=== PATIENT | female | born 1960 | race Caucasian/White ===

== ENCOUNTER 2019-09-02 09:59 | Outpatient (CLI) | payer OTHER, SELFPAY ==
[2019-09-02 10:47] LABS: Magnesium 1.8 mg/dL (1.8-2.4)
[2019-09-04 10:52] LABS: Vitamin D 25 Hydroxy 66 ng/mL (30-100)
== END 2019-09-02 10:00 | disposition home or self-care (01) ==
LOC: CHSLAB 10:02
PROVIDERS: PCP Nurse Practitioner Family; Visit Provider Nurse Practitioner Family
DX: R79.89 Other specified abnormal findings of blood chemistry (principal); E55.9 Vitamin D deficiency, unspecified
CPT/HCPCS: 36415; 82306; 83735

== ENCOUNTER 2020-01-13 08:54 | Outpatient (RCR) | payer OTHER, SELFPAY ==
--- NOTE | 2020-01-13 10:05 | PTOPEVAL ---
Thank you for referring Kaylene Hope to [facility] [place][Note 2]. Please review, sign, date and return this plan of care YUDITH. I agree with and certify that the following plan of care is medically necessary. Referring Physician Date Admitting Provider: Attending Provider: Reyes Phelps, Referring Provider: *PT Outpatient Evaluation Start: 01/13/20 09:08 Freq: Status: Active Protocol: Document 01/13/20 09:08 YUE (Rec: 01/13/20 10:04 YUE [id number]) Therapy Assessment Status Assessment Status Assessment Status Evaluation Outpatient Past Medical History Neurological History Hx Neurological Disorders No Significant History Cardiovascular History Hx Cardiac Disorders No Significant History Respiratory History Hx Respiratory Disorders No Significant History Gastrointestinal History Hx Gastrointestinal Disorders No Significant History Genitourinary History Hx Genitourinary Disorders No Significant History Musculoskeletal History Hx Musculoskeletal Disorders No Significant History Hematological History Hx Blood Transfusions Yes Endocrine History Hx Endocrine Disorders No Significant History HEENT History Hx HEENT Disorders No Significant History Integumentary History Hx Skin Disorders No Significant History Reproductive History Hx Post Menopausal Yes Psychosocial History Hx Psychiatric Disorders No Significant History Pain History Has Past Pain Affected Your Daily Life Yes Anesthesia History Hx Anesthesia Reactions No Significant History Evaluation Information Problem Diagnosis left proximal tibia fx Onset 06/29/19 Subjective Information Pt. reports that she was Query Text:As Reported By Patient/ preparing for a family get Family together in June. She reports that she was walking down an step stool and missed a step and sharebroker her left leg . She reports that she underwent surgery to repair the fx on 07/05/19. She reports having had compartment syndrome initially. She states that her pain is not intense currently. She states that since injuring the leg she has not been able to walk normal. She reports that her complications stem from her being NWB untill mid august and then limited with her WB
== END 2020-02-14 09:32 | disposition home or self-care (01) ==
LOC: CHSPT 08:54
PROVIDERS: PCP Nurse Practitioner Family; Visit Provider Orthopaedic Surgery Orthopaedic Trauma
DX: S82.102A Unspecified fracture of upper end of left tibia, initial encounter for closed fracture (principal)
CPT/HCPCS: 97110; 97161; 97530

== ENCOUNTER 2020-01-19 08:08 | Emergency (ER) | payer OTHER, SELFPAY ==
[2020-01-19 08:15] VITALS: BP 114/86; PULSE 108; RESP 18; TEMP 36.7; O2SAT 96
--- NOTE | 2020-01-19 08:54 | ED.WOUNDLAC ---
HPI - Wound/Laceration General Chief Complaint: Wound/Laceration Stated Complaint: allergic reation to a bee or wasp sting Source: patient Mode of arrival: ambulatory Limitations: no limitations History of Present Illness HPI narrative: [place] a sharp sting in the right medial ankle 2 days ago. Yesterday AM a small blister was forming at the sting site and foot was swollen. Since then the blistering has progressed to involve the medial and lateral ankle. The medial was opened up yesterday. It drains honey colored fluid. She has no pain, red streaking, fever or chills. There is some itching. Last week she had a sting on the lateral side resulting in foot become pink and swollen but not vesicular. She recalls receiving prednisone in the past (amount/duration unknown) followed by visual halllucinations. Related Data Home Medications Medication Instructions Recorded Confirmed Spiriva Respimat 2 puff INHALATION DAILY 06/29/19 01/19/20 Allergies Allergy/AdvReac Type Severity Reaction Status Date / Time prednisone Allergy Intermediate Agitation Verified 01/21/20 07:54 Review of Systems Constitutional: Constitutional: Denies chills and Denies fever(s) Respiratory: Comments: Gastrointestinal: Gastrointestinal: Denies nausea and Denies vomiting Integumentary/Breasts: Skin/Breast: Reports system reviewed and no additional complaints, except as docu [facility] Past Medical History Medical History COPD (chronic obstructive pulmonary disease) DEON (generalized anxiety disorder) Hypothyroid Nicotine dependence Surgical History Surgical History H/O hernia repair Hx of colonoscopy 05/28/2018 Social History Social History Smoking status: Current every day smoker Tobacco type: cigarettes Alcohol intake: current Drinks per week: 14 Substance use: never Gender identity (if verbalized by the patient): Female Spiritual care concerns: No Agree to blood products: Yes Exam Const: General: no acute distress Extrem: Ankle/foot/toe images: 1. tender ulceration with honey colored d.c. no surrounding redness or tenderness 2. patch of nontender vesicles 3. patch of nontender vesicles Other: right medial and lateral edema of ankle and foot Course Vital Signs Vital signs: Vital Signs Temperature 36.7 C 07/19/20 08:15 Pulse Rate 108 H 01/19/20 08:15 Respiratory Rate 18 01/19/20 08:15 Blood Pressure 114/86 01/19/20 08:15 Pulse Oximetry 96 01/19/20 08:15 Temperature 36.6 C 01/19/20 09:11 Pulse Rate 95 01/19/20 09:11 Respiratory Rate 20 01/19/20 09:11 Blood Pressure 128/70 01/19/20 09:11 Pulse Oximetry 99 01/19/20 09:11 MDM - Wound/Laceration MDM Narrative Medical decision making narrative: Rapid development of swelling and blistering in less than a day is c/w a Large Local Reaction from a hymenoptera sting. Infection would occur at 3 days, and would be associated with pain, redness and tenderness. Pt. informed of this. C & S sent. Discharge Plan Discharge Clinical Impression: Hymenoptera reaction Patient Disposition: Home, Self-Care Condition: Stable Instructions: Antibiotic Form, Cellulitis (ED), Insect Bite or Sting (ED) Additional Instructions: Cetirizine over the counter as needed for itching. Keep wound clean and dry. See Millie in 2 days if not improved, or in 5 days if blisters haven't healed. Apply cool compress to sooth it. Avoid situations where you may come in contact with wasps and bees. Wear shoes and socks when possible. Prescriptions: No Action Spiriva Respimat 2.5 mcg/actuation mist 2 puff INHALATION DAILY RF: 0 albuterol sulfate 90 mcg/actuation HFA aerosol inhaler 1 puff INHALATION QID PRN (Reason: shortness of breath) Qty: 6.7 RF: 0 cholecalciferol
[2020-01-19] MEDS: NEOMYCIN/POLYMYXIN/BACITRACIN OINTMENT PACKET 2 PACKET (09:04)
[2020-01-19] MEDS: TETANUS,DIPHTHERIA,AC PERTUSSIS ADULT 0.5 ML (ADACEL) IM (09:08)
[2020-01-19 09:11] VITALS: BP 128/70; PULSE 95; RESP 20; TEMP 36.6; O2SAT 99
== END 2020-01-19 09:20 | disposition home or self-care (01) ==
PROVIDERS: Emergency Provider Family Medicine; PCP Nurse Practitioner Family
DX: S90.521A Blister (nonthermal), right ankle, initial encounter (principal); W57.XXXA Bitten or stung by nonvenomous insect and other nonvenomous arthropods, initial encounter
CPT/HCPCS: 87070; 87077; 87186; 87205; 90471; 90715; 99281; 99282

== ENCOUNTER 2020-03-23 10:51 | Outpatient (CLI) | payer OTHER, SELFPAY ==
[2020-03-23 11:07] LABS: Basophils Absolute Auto 0.07 K/mm3 (0.00-0.10); Basophils Percent Auto 0.7 % (0.0-1.0); Hematocrit 43.5 % (35.0-49.0); Hemoglobin 14.6 g/dL (12.0-15.0); Immature Granulocyte Absolute 0.05 K/mm3 (0.00-0.00); Immature Granulocyte Percent A 0.5 % (0.0-0.0); Lymphocytes Absolute Auto 2.07 K/mm3 (1.10-4.50); Lymphocytes Percent Auto 21.9 % (18.0-42.0); Mean Corpuscular HGB Conc 33.6 g/dL (32.0-36.0); Mean Corpuscular Hemoglobin 32.7 pg (27.0-31.0); Mean Corpuscular Volume 97.3 fL (78.0-102.0); Mean Platelet Volume 9.6 fl (9.2-11.8); Monocytes Absolute Auto 0.52 K/mm3 (0.10-0.90); Monocytes Percent Auto 5.5 % (2.0-11.0); Neutrophils Absolute Auto 6.7 K/mm3 (1.7-7.2); Neutrophils Percent Auto 71.4 % (50.0-70.0); Platelet Count Result 281 K/mm3 (150-420); Red Blood Count 4.47 M/mm3 (4.20-5.40); Red Cell Distribution Width 13.6 % (11.6-14.4); White Blood Count 9.5 K/mm3 (4.8-10.8)
[2020-03-23 11:49] LABS: Alanine Aminotransferase 19 U/L (14-59); Albumin Level 4.7 g/dL (3.4-5.0); Alkaline Phosphatase 115 U/L (46-116); Anion Gap 11 mmol/L (8-16); Aspartate Amino Transferase 15 U/L (15-37); Bilirubin,Total 0.3 mg/dL (0.00-1.00); Blood Urea Nitrogen 13 mg/dL (7-18); Calcium 9.2 mg/dL (8.5-10.1); Carbon Dioxide 28 mmol/L (21-32); Chloride 101 mmol/L (98-108); Estimated Glomerular Filt Rate > 60; Free T4 Free Thyroxine 1.23 ng/dL (0.76-1.46); Glucose 120 mg/dL (70-99); Magnesium 2.2 mg/dL (1.8-2.4); Osmolality Calculated 291 mOsm/kg (285-295); Potassium 4.6 mmol/L (3.5-5.1); Sodium 140 mmol/L (136-145); Thyroid Stimulating Hormone 0.78 uIU/mL (0.36-3.74); Total Protein 7.5 g/dL (6.4-8.2)
[2020-03-23 15:08] LABS: Hemoglobin A1C 5.2 % (<5.7)
[2020-03-26 22:04] LABS: Vitamin D 25 Hydroxy 49 ng/mL (30-100)
== END 2020-03-23 10:52 | disposition home or self-care (01) ==
LOC: CHSLAB 10:55
PROVIDERS: PCP Nurse Practitioner Family; Visit Provider Nurse Practitioner Family
DX: Z79.899 Other long term (current) drug therapy (principal); E03.9 Hypothyroidism, unspecified; R42 Dizziness and giddiness; R73.09 Other abnormal glucose
CPT/HCPCS: 36415; 80053; 82306; 83036; 83735; 84439; 84443; 85025

== ENCOUNTER 2020-06-09 09:34 | Outpatient (CLI) | payer OTHER, SELFPAY ==
--- NOTE | ~2020-06-09 | XR_ITS ---
XR chest 2V DATE: 06/09/2020 10:12 INDICATION: Preoperative evaluation for leg surgery/john removal TECHNIQUE: PA and lateral views COMPARISON: 07/20/2019 CT pulmonary scan 07/20/2019 portable AP chest FINDINGS: Normal heart size. There is minimal atelectasis or scarring at one or both lung bases. The lungs are otherwise clear of infiltrate or consolidation. Mild bilateral apical capping. No hilar or mediastinal enlargement. No pleural effusion or pulmonary vascular congestion or pneumothorax. Diffuse osteopenia. Mild dextro scoliosis of the thoracic spine. IMPRESSION: Mild discoid atelectasis or scarring at one or both lung bases; otherwise no active cardi opulmonary disease Reviewed, dictated and finalized at location A. ESPONDENT IMPRESSION: Mild discoid atelectasis or scarring at one or both lung bases; oth erwise no active cardiopulmonary disease
--- NOTE | 2020-06-09 09:37 | ECG_ITS ---
Measurements Intervals [place] Rate: 64 P: 80 OR: 189 QRS: -12 QRSD: 96 T: 42 QT: 414 QTc: 430 Interpretive Statements SINUS RHYTHM INCOMPLETE RIGHT BUNDLE BRANCH BLOCK BASELINE ARTIFACT- iii, avf BORDERLINE ECG Electronically Signed On 06-09-2020 9:55:59 POST OFFICE CLERK by Stephan Bowser D.O.
[2020-06-09 09:55] LABS: Add Urine Microscopic? YES; Appearance Urine Clear (Clear); Basophils Absolute Auto 0.06 K/mm3 (0.00-0.10); Basophils Percent Auto 0.9 % (0.0-1.0); Bilirubin Urine Negative (Negative); Blood Urine Negative (Negative); Color Urine Yellow (Yellow); Eosinophils Absolute Auto 0.06 K/mm3 (0.02-0.50); Eosinophils Percent Auto 0.9 % (1.0-6.0); Glucose Urine UA Negative (Negative); Hematocrit 40.6 % (35.0-49.0); Hemoglobin 13.2 g/dL (12.0-15.0); Immature Granulocyte Absolute 0.02 K/mm3 (0.00-0.00); Immature Granulocyte Percent A 0.3 % (0.0-0.0); Ketones Urine Negative (Negative); Leukocyte Esterase Ur Trace LEU/UL (Negative); Lymphocytes Absolute Auto 2.39 K/mm3 (1.10-4.50); Mean Corpuscular HGB Conc 32.5 g/dL (32.0-36.0); Mean Corpuscular Hemoglobin 32.4 pg (27.0-31.0); Mean Corpuscular Volume 99.5 fL (78.0-102.0); Mean Platelet Volume 9.7 fl (9.2-11.8); Monocytes Absolute Auto 0.62 K/mm3 (0.10-0.90); Monocytes Percent Auto 9.1 % (2.0-11.0); Neutrophils Absolute Auto 3.7 K/mm3 (1.7-7.2); Neutrophils Percent Auto 53.8 % (50.0-70.0); Nitrate Urine Negative (Negative); Platelet Count Result 233 K/mm3 (150-420); Protein Urine Negative (Negative); Red Blood Count 4.08 M/mm3 (4.20-5.40); Red Cell Distribution Width 13.2 % (11.6-14.4); Urobilinogen Urine 0.2 mg/dL (0.2-1.0); White Blood Count 6.8 K/mm3 (4.8-10.8)
[2020-06-09 10:02] LABS: RBC Urine 0-2 /hpf (0-2); WBC Urine 0-3 /hpf (0-3)
[2020-06-09 10:03] LABS: Amorphous Sediment Urine Moderate; Bacteria Urine Trace /hpf; Squamous Epithelial Cell Urine Rare /hpf (Few)
[2020-06-09 10:08] LABS: Prothrombin Time 10.7 Seconds (9.50-12.10)
[2020-06-09 10:41] LABS: Alanine Aminotransferase 18 U/L (14-59); Albumin Level 4.5 g/dL (3.4-5.0); Alkaline Phosphatase 90 U/L (46-116); Anion Gap 8 mmol/L (8-16); Aspartate Amino Transferase 13 U/L (15-37); Bilirubin,Total 0.5 mg/dL (0.00-1.00); Blood Urea Nitrogen 17 mg/dL (7-18); Calcium 9.6 mg/dL (8.5-10.1); Carbon Dioxide 30 mmol/L (21-32); Chloride 102 mmol/L (98-108); Estimated Glomerular Filt Rate > 60; Glucose 101 mg/dL (70-99); Osmolality Calculated 291 mOsm/kg (285-295); Potassium 4.5 mmol/L (3.5-5.1); Sodium 140 mmol/L (136-145)
== END 2020-06-09 09:35 | disposition home or self-care (01) ==
LOC: CHSLAB 09:37
PROVIDERS: PCP Nurse Practitioner Family; Visit Provider Nurse Practitioner Family
DX: Z01.818 Encounter for other preprocedural examination (principal)
CPT/HCPCS: 36415; 71046; 80053; 81001; 85025; 85610; 93005

== ENCOUNTER → 2020-06-30 10:15 | Outpatient (CLI) | payer OTHER, SELFPAY ==
--- NOTE | ~2020-06-30 | MM_ITS ---
EXAMINATION: MM screening [place] BI w rubin HISTORY: Screening TECHNIQUE: Craniocaudal and mediolateral oblique 3-D tomosynthesis images were obtained and synthetic 2-D images were generated. CAD analysis was submitted and interpreted. COMPARISON: Comparison to multiple prior studies sequentially, with oldest reviewed study dated 08/01. BREAST PARENCHYMAL COMPOSITION: There are scattered areas of fibroglandular density. FINDINGS: There is no evidence of suspicious mass, calcification, or architectural distortion to sugg est malignancy in either breast. There has been no suspicious interval change. IMPRESSION: 1. No mammographic evidence of malignancy. 2. Recommend routine screening mammography in one year. BI-RADS Category 1: Negative Reviewed, dictated and finalized at location A. N MACHINE OPERATOR
== END ==
PROVIDERS: Visit Provider Obstetrics & Gynecology
DX: Z12.31 Encounter for screening mammogram for malignant neoplasm of breast (principal)
CPT/HCPCS: 77063; 77067

== ENCOUNTER 2020-06-30 16:49 | Outpatient (CLI) | payer OTHER, SELFPAY | END 2020-06-30 16:50 | disposition home or self-care (01) | LOC: CHSLAB 16:52 | PROVIDERS: PCP Nurse Practitioner Family; Visit Provider Specialist | DX: C44.519 Basal cell carcinoma of skin of other part of trunk (principal) | CPT/HCPCS: 88305 ==

== ENCOUNTER 2020-10-06 10:11 | Outpatient (CLI) | payer OTHER, SELFPAY ==
[2020-10-06 11:18] LABS: Thyroid Stimulating Hormone 1.97 uIU/mL (0.36-3.74)
== END 2020-10-06 10:12 | disposition home or self-care (01) ==
LOC: CHSLAB 10:13
PROVIDERS: PCP Nurse Practitioner Family; Visit Provider Nurse Practitioner Family
DX: E03.9 Hypothyroidism, unspecified (principal)
CPT/HCPCS: 36415; 84443

== ENCOUNTER 2021-01-16 08:20 | Outpatient (CLI) | payer OTHER, SELFPAY ==
[2021-01-16 09:44] LABS: SARS-CoV-2 RNA PCR Negative (Negative)
== END 2021-01-16 08:21 | disposition home or self-care (01) ==
PROVIDERS: PCP Nurse Practitioner Family; Visit Provider Nurse Practitioner Family
DX: Z01.818 Encounter for other preprocedural examination (principal); Z20.822 Contact with and (suspected) exposure to COVID-19
CPT/HCPCS: C9803; U0003; U0005

== ENCOUNTER 2021-08-31 11:46 | Outpatient (CLI) | payer OTHER, SELFPAY | END 2021-08-31 11:47 | disposition home or self-care (01) | LOC: CHSOUTPT 11:47 | PROVIDERS: PCP Nurse Practitioner Family; Visit Provider Specialist | DX: C44.319 Basal cell carcinoma of skin of other parts of face (principal) | CPT/HCPCS: 88305 ==

== ENCOUNTER 2021-11-05 09:00 | Outpatient (CLI) | payer OTHER, SELFPAY ==
[2021-11-05 09:11] LABS: Hematocrit 44.2 % (35.0-49.0); Hemoglobin 14.4 g/dL (12.0-15.0); Mean Corpuscular HGB Conc 32.6 g/dL (32.0-36.0); Mean Corpuscular Volume 101.1 fL (78.0-102.0); Mean Platelet Volume 9.9 fl (9.2-11.8); Platelet Count Result 224 K/mm3 (150-420); Red Blood Count 4.37 M/mm3 (4.20-5.40); Red Cell Distribution Width 13.7 % (11.6-14.4); White Blood Count 6.3 K/mm3 (4.8-10.8)
[2021-11-05 10:15] LABS: Alanine Aminotransferase 48 U/L (14-59); Albumin Level 3.8 g/dL (3.4-5.0); Alkaline Phosphatase 104 U/L (46-116); Anion Gap 4 mmol/L (8-16); Aspartate Amino Transferase 30 U/L (15-37); Bilirubin,Total 0.3 mg/dL (0.00-1.00); Blood Urea Nitrogen 12 mg/dL (7-18); Calcium 9.3 mg/dL (8.5-10.1); Carbon Dioxide 30 mmol/L (21-32); Chloride 99 mmol/L (98-108); Cholesterol 174 mg/dL (0-200); Estimated Glomerular Filt Rate > 60; Folic Acid 10.7 ng/mL (8.6->20); Glucose 110 mg/dL (70-99); HDL Direct 75 mg/dL (40-60); LDL Cholesterol Calculated 83 mg/dL (<130); Osmolality Calculated 276 mOsm/kg (285-295); Potassium 4.7 mmol/L (3.5-5.1); Sodium 133 mmol/L (136-145); Triglycerides 82 mg/dL (0-150); Vitamin B12 497 pg/mL (193-986)
[2021-11-05 10:18] LABS: Thyroid Stimulating Hormone Reflex 2.06 u/IU/mL (0.36-3.74)
[2021-11-08 15:40] LABS: Hemoglobin A1C 4.9 % (<5.7)
[2021-11-09 15:00] LABS: Vitamin D 1,25 (OH)2 Total 45 pg/mL (18-72); Vitamin D2 1,25 (OH)2 <8 pg/mL; Vitamin D3 1,25 (OH)2 45 pg/mL
== END 2021-11-05 09:01 | disposition home or self-care (01) ==
LOC: CHSLAB 09:02
PROVIDERS: PCP Nurse Practitioner Family; Visit Provider Family Medicine
DX: E53.8 Deficiency of other specified B group vitamins (principal); R53.1 Weakness; E11.9 Type 2 diabetes mellitus without complications; E03.9 Hypothyroidism, unspecified; E55.9 Vitamin D deficiency, unspecified
CPT/HCPCS: 36415; 80053; 80061; 82607; 82652; 82746; 83036; 84443; 85027

== ENCOUNTER 2022-04-28 10:48 | Outpatient (RCR) | payer OTHER, SELFPAY ==
--- NOTE | 2022-04-28 12:58 | PTOPEVAL1 ---
Assessment and note entered by Pooja Espino, PT Evaluation Information Assessment Status Evaluation Diagnosis Complex Regional Pain Syndrom L LE Onset 06/29/19 Subjective Information Kaylene Hope reports she broke her left tibia and fibula on 06/29/19 and she had to have surgery to have the fractures stabilized. She was non-weight bearing for 3 months and she was supposed to see her surgeon in September 2019 but it was cancelled due to COVID. She continued to be non-weight bearing and she finally saw the surgeon in November 2019 and was able to start putting 25% weight on her left leg. She states pain in the left knee and sensitivity in the lower leg has never gone away since then. Sensitivity has gotten worse so, she went back to her surgeon. She was diagnosed with complex regional pain syndrome and arthritis in her knee; she is almost bone on bone. She will likely need a total knee replacement in the next 2 years. She had an injection on 04/25/22 to improve the cushion in her knee. She is having left knee pain with stepping up, walking, and standing for long periods. She notes sensitivity to even light rubbing on her leg. Reported Pain Level Pain Score 7: Self Report Assessment PT Clinical Summary Kaylene Hope presents with a diagnosis of left complex regional pain syndrome of the lower leg. She had a fracture to the left tibia and fibula requiring surgical stabilization in June 2019. She was non-weight bearing for 3 months and then only partial weight bearing for 2 more months. She reports left knee pain and lower leg sensitivity has not gone away since then. She was also recently diagnosed with knee arthritis. She objectively demonstrates hypersensitivity in the left lower leg from the ankle to the knee. Hypersensitivity is worse distally and laterally. She also demonstrates decreased left knee and ankle AROM, lower leg and ankle edema, decreased left LE strength, impaired gait, impaired balance, and decreased functional abilities including lower tolerance to driving a bus, walking, stair negotiation, and standing. Balance tests indicate she is a moderate fall risk. She will benefit from skilled PT to address these limitations. Plan of Care Interventions Gait Training,Hot Pack/Cold Pack,Manual Therapy, Neuro Re-education,Patient/Caregiver Educati, Th
--- NOTE | 2022-05-10 12:05 | PTOPPROG ---
Assessment and note entered by Pooja Espino, PT Evaluation Information Assessment Status Progress Diagnosis Complex Regional Pain Syndrome L LE Onset 06/29/22 Subjective Information Kaylene reports her pain and hypersensitivity in the left lower leg has not changed much since initiating PT. She does note a small improvement in her mobility though. She will see her referring physician on 05/11/22 for a follow up appointment. Assessment PT Clinical Summary Kaylene has completed 5 skilled PT visits for left knee/leg pain and complex regional pain syndrome. She is reporting no overall change in her pain or sensitvity since initiating PT. She does note a small improvement in her mobility. She objectively demonstrates ongoing hypersensitivity on the left lower leg that is worse laterally and becomes less sensitive medially. She continues to have deficits in left knee and ankle ROM, impaired gait , and left lower leg edema. She may continue to benefit from skilled PT to further address ongoing physical and functional limitations. Plan of Care Interventions Manual Therapy,Neuro Re-education,Patient/ Caregiver Educati,Therapeutic Activities, Therapeutic Exercise PT Services Indicated Yes Treatment Frequency and Continue 3 times a week for 7 more visits per Duration original plan of care. These treatments will address the objective and functional deficits as defined above. The patient will be advanced safely and appropriately in order for the patient to progress towards his/her prior level of function. Additional exercises will be introduced and as well as a comprehensive home exercise program upon discharge, if needed, ?to ensure carryover of functional gains achieved in the clinic. This treatment plan has been reviewed and agreement upon by the patient.
--- NOTE | 2022-07-25 17:36 | PCPTNOTE ---
Mrs. Hope attended 9 treatment sessions from 04/28/22 to 05/20/22. She has failed to return to the clinic at this time and will be discharged from our care.
== END 2022-05-20 14:11 | disposition home or self-care (01) ==
LOC: CHSPT 10:48
DX: G90.522 Complex regional pain syndrome I of left lower limb (principal)
CPT/HCPCS: 97110; 97140; 97161

== ENCOUNTER 2023-01-27 08:51 | Outpatient (CLI) | payer OTHER, SELFPAY ==
[2023-01-27 09:08] LABS: Basophils Absolute Auto 0.05 K/mm3 (0.00-0.10); Basophils Percent Auto 0.8 % (0.0-1.0); Eosinophils Absolute Auto 0.06 K/mm3 (0.02-0.50); Eosinophils Percent Auto 0.9 % (1.0-6.0); Hematocrit 39.4 % (35.0-49.0); Hemoglobin 13.7 g/dL (12.0-15.0); Immature Granulocyte Absolute 0.03 K/mm3 (0.00-0.00); Immature Granulocyte Percent A 0.5 % (0.0-0.0); Lymphocytes Absolute Auto 2.21 K/mm3 (1.10-4.50); Lymphocytes Percent Auto 33.8 % (18.0-42.0); Mean Corpuscular HGB Conc 34.8 g/dL (32.0-36.0); Mean Corpuscular Hemoglobin 33.4 pg (27.0-31.0); Mean Corpuscular Volume 96.1 fL (78.0-102.0); Mean Platelet Volume 9.9 fl (9.2-11.8); Monocytes Absolute Auto 0.51 K/mm3 (0.10-0.90); Monocytes Percent Auto 7.8 % (2.0-11.0); Neutrophils Absolute Auto 3.7 K/mm3 (1.7-7.2); Neutrophils Percent Auto 56.2 % (50.0-70.0); Platelet Count Result 205 K/mm3 (150-420); Red Cell Distribution Width 13.5 % (11.6-14.4); White Blood Count 6.5 K/mm3 (4.8-10.8)
[2023-01-27 09:50] LABS: Alanine Aminotransferase 21 U/L (14-59); Albumin Level 4.1 g/dL (3.4-5.0); Alkaline Phosphatase 86 U/L (46-116); Anion Gap 10 mmol/L (8-16); Aspartate Amino Transferase 17 U/L (15-37); Bilirubin,Total 0.9 mg/dL (0.00-1.00); Blood Urea Nitrogen 5 mg/dL (7-18); Calcium 8.9 mg/dL (8.5-10.1); Carbon Dioxide 28 mmol/L (21-32); Chloride 99 mmol/L (98-108); Cholesterol 246 mg/dL (0-200); Estimated Glomerular Filt Rate > 60; Glucose 121 mg/dL (70-99); HDL Direct 85 mg/dL (40-60); LDL Cholesterol Calculated 131 mg/dL (<130); Osmolality Calculated 282 mOsm/kg (285-295); Potassium 3.8 mmol/L (3.5-5.1); Sodium 137 mmol/L (136-145); Thyroid Stimulating Hormone 1.25 uIU/mL (0.36-3.74); Triglycerides 150 mg/dL (0-150)
== END 2023-01-27 08:52 | disposition home or self-care (01) ==
LOC: CHSLAB 08:53
PROVIDERS: PCP Nurse Practitioner Family; Visit Provider Nurse Practitioner Family
DX: J44.9 Chronic obstructive pulmonary disease, unspecified (principal); E03.9 Hypothyroidism, unspecified
CPT/HCPCS: 36415; 80053; 80061; 83036; 84443; 85025

== ENCOUNTER 2023-07-13 11:47 | Outpatient (CLI) | payer OTHER, SELFPAY ==
--- NOTE | ~2023-07-13 | MM_ITS ---
EXAMINATION: MM screening [facility] BI w rubin HISTORY: Screening mammogram TECHNIQUE: Craniocaudal and mediolateral oblique 3-D tomosynthesis images were obtained and synthetic 2-D images were generated. CAD analysis was submitted and interpreted. COMPARISON: 06/30/2020, 06/28/2019, 05/17/2018 BREAST PARENCHYMAL COMPOSITION: There are scattered areas of fibroglandular density. FINDINGS: No suspicious mass, calcification, or architectural distortion are identified in either tito ast to suggest malignancy. There has been no suspicious interval change. IMPRESSION: 1. No mammographic evidence of malignancy. 2. Recommend routine screening mammography in one year. BI-RADS Category 1: Negative Reviewed, dictated and finalized at location A. ER 2ND SHIFT
== END 2023-07-13 11:48 | disposition home or self-care (01) ==
LOC: CHSIMG 11:48
PROVIDERS: PCP Nurse Practitioner Family; Visit Provider Nurse Practitioner Family
DX: Z12.31 Encounter for screening mammogram for malignant neoplasm of breast (principal)
CPT/HCPCS: 77063; 77067

== ENCOUNTER 2023-09-19 11:00 | Outpatient (CLI) | payer OTHER, SELFPAY | END 2023-09-19 11:01 | disposition home or self-care (01) | LOC: CHSLAB 11:06 | PROVIDERS: PCP Nurse Practitioner Family; Visit Provider Specialist | DX: C44.311 Basal cell carcinoma of skin of nose (principal) | CPT/HCPCS: 88305 ==

== ENCOUNTER 2023-10-19 08:24 | Outpatient (CLI) | payer OTHER, SELFPAY ==
[2023-10-19 09:08] LABS: Appearance Urine Clear (Clear); Basophils Absolute Auto 0.07 K/mm3 (0.00-0.10); Bilirubin Urine Negative (Negative); Blood Urine Negative (Negative); Color Urine Light Yellow (Yellow); Eosinophils Absolute Auto 0.06 K/mm3 (0.02-0.50); Eosinophils Percent Auto 0.9 % (1.0-6.0); Glucose Urine UA Negative (Negative); Hemoglobin 13.4 g/dL (12.0-15.0); Immature Granulocyte Absolute 0.02 K/mm3 (0.00-0.00); Immature Granulocyte Percent A 0.3 % (0.0-0.0); Ketones Urine Negative (Negative); Leukocyte Esterase Ur Trace (Negative); Lymphocytes Absolute Auto 2.21 K/mm3 (1.10-4.50); Lymphocytes Percent Auto 32.3 % (18.0-42.0); Mean Corpuscular HGB Conc 33.5 g/dL (32-36); Mean Corpuscular Hemoglobin 32.8 pg (27.0-31.0); Mean Corpuscular Volume 97.8 fL (78.0-102.0); Mean Platelet Volume 10.2 fl (9.2-11.8); Monocytes Absolute Auto 0.49 K/mm3 (0.10-0.90); Monocytes Percent Auto 7.2 % (2.0-11.0); Neutrophils Percent Auto 58.3 % (50.0-70.0); Nitrate Urine Negative (Negative); Platelet Count Result 253 K/mm3 (150-420); Protein Urine Negative (Negative); Red Blood Count 4.09 M/mm3 (4.20-5.40); Red Cell Distribution Width 12.7 % (11.6-14.4); Specific Grav Ur 1.025 (1.010-1.020); Urobilinogen Urine 0.2 mg/dL (0.2-1.0); White Blood Count 6.9 K/mm3 (4.8-10.8); pH Urine 5.5 (5.0-8.0)
[2023-10-19 09:09] LABS: HCO3 VBG 25.7 mEq/l (24.0-30.0); PCO2 VBG 41.6 mmHg (42.0-48.0); pH VBG 7.41 (7.33-7.43)
[2023-10-19 09:11] LABS: Device ROOM AIR
[2023-10-19 09:28] LABS: Add Urine Microscopic? YES; RBC Urine None seen /hpf (0-2)
[2023-10-19 09:29] LABS: Bacteria Urine Rare /hpf; Squamous Epithelial Cell Urine Few /hpf (Few); WBC Urine 0-3 /hpf (0-3)
[2023-10-19 09:32] LABS: Prothrombin Time 10.7 Seconds (9.50-12.1)
[2023-10-19 09:48] LABS: Alanine Aminotransferase 22 U/L (14-59); Albumin Level 4.3 g/dL (3.4-5.0); Alkaline Phosphatase 82 U/L (46-116); Anion Gap 7 mmol/L (4-12); Aspartate Amino Transferase 19 U/L (15-37); Bilirubin,Total 0.5 mg/dL (0.00-1.00); Blood Urea Nitrogen 8 mg/dL (7-18); Calcium 9.3 mg/dL (8.5-10.1); Carbon Dioxide 31 mmol/L (21-32); Chloride 99 mmol/L (98-108); Cholesterol 212 mg/dL (0-200); Estimated Glomerular Filt Rate > 60; Glucose 105 mg/dL (70-99); HDL Direct 94 mg/dL (40-60); LDL Cholesterol Calculated 102 mg/dL (<130); Osmolality Calculated 282 mOsm/kg (285-295); Potassium 4.4 mmol/L (3.5-5.1); Sodium 137 mmol/L (136-145); Total Protein 6.8 g/dL (6.4-8.2); Triglycerides 79 mg/dL (0-150)
== END 2023-10-19 08:25 | disposition home or self-care (01) ==
LOC: CHSLAB 08:26
PROVIDERS: PCP Nurse Practitioner Family; Visit Provider Nurse Practitioner Family
DX: Z00.00 Encounter for general adult medical examination without abnormal findings (principal); E03.9 Hypothyroidism, unspecified; F17.200 Nicotine dependence, unspecified, uncomplicated; R41.0 Disorientation, unspecified
CPT/HCPCS: 36415; 80053; 80061; 81001; 82803; 83036; 84443; 85025; 85610; 87086; 87088

== ENCOUNTER 2023-10-20 09:57 | Outpatient (CLI) | payer OTHER, SELFPAY ==
--- NOTE | ~2023-10-20 | CT_ITS ---
Non-contrast Head CT History: Disorientation Technique: Axial non-contrast imaging of the brain was performed. Dose reduction technique was used on this scan by utilizing automated exposure control and iterative reconstruction technique. The dose -length product (DLP) was 605.33 mGy-cm. Findings: There is no evidence of intracranial hemorrhage, mass lesion, or acute infarct. Brain par enchyma appears normal. The ventricles and subarachnoid spaces are normal in size. The calvarium ap pears normal. The visualized paranasal sinuses and mastoid air cells are clear. Impression: No significant abnormality seen. Reviewed, dictated and finalized at location . Impression: No significant abnormality seen.
== END 2023-10-20 09:58 | disposition home or self-care (01) ==
LOC: CHSIMG 09:58
PROVIDERS: PCP Nurse Practitioner Family; Visit Provider Nurse Practitioner Family
DX: H21.561 Pupillary abnormality, right eye (principal); R41.0 Disorientation, unspecified
CPT/HCPCS: 70450

== ENCOUNTER 2024-04-30 09:53 | Outpatient (CLI) | payer OTHER, SELFPAY | END 2024-04-30 09:54 | disposition home or self-care (01) | LOC: CHSLAB 09:57 | PROVIDERS: PCP Family Medicine; Visit Provider Specialist | DX: C44.311 Basal cell carcinoma of skin of nose (principal) | CPT/HCPCS: 88305 ==

== ENCOUNTER 2024-05-14 11:11 | Outpatient (CLI) | payer OTHER, SELFPAY ==
[2024-05-14 11:24] LABS: Basophils Absolute Auto 0.08 K/mm3 (0.00-0.10); Basophils Percent Auto 0.9 % (0.0-1.0); Eosinophils Absolute Auto 0.04 K/mm3 (0.02-0.50); Eosinophils Percent Auto 0.5 % (1.0-6.0); Hematocrit 40.9 % (35.0-49.0); Immature Granulocyte Absolute 0.02 K/mm3 (0.00-0.00); Immature Granulocyte Percent A 0.2 % (0.0-0.0); Lymphocytes Percent Auto 27.2 % (18.0-42.0); Mean Corpuscular HGB Conc 34.2 g/dL (32-36); Mean Corpuscular Hemoglobin 33.3 pg (27.0-31.0); Mean Corpuscular Volume 97.1 fL (78.0-102.0); Mean Platelet Volume 9.7 fl (9.2-11.8); Monocytes Absolute Auto 0.73 K/mm3 (0.10-0.90); Monocytes Percent Auto 8.3 % (2.0-11.0); Neutrophils Absolute Auto 5.55 K/mm3 (1.70-7.20); Neutrophils Percent Auto 62.9 % (50.0-70.0); Platelet Count Result 270 K/mm3 (150-420); Red Blood Count 4.21 M/mm3 (4.20-5.40); Red Cell Distribution Width 12.5 % (11.6-14.4); White Blood Count 8.8 K/mm3 (4.8-10.8)
[2024-05-14 11:37] LABS: D Dimer 0.19 mg/L (0.19-0.50); Prothrombin Time 10.9 Seconds (9.50-12.1)
[2024-05-14 11:47] LABS: Anion Gap 8 mmol/L (4-12); Blood Urea Nitrogen 9 mg/dL (7-18); Calcium 9.7 mg/dL (8.5-10.1); Carbon Dioxide 32 mmol/L (21-32); Chloride 100 mmol/L (98-108); Estimated Glomerular Filt Rate > 60; Glucose 118 mg/dL (70-99); NT Pro B Type Natriuretic Pept 74 pg/mL (0-125); Osmolality Calculated 289 mOsm/kg (285-295); Potassium 3.7 mmol/L (3.5-5.1); Sodium 140 mmol/L (136-145); Thyroid Stimulating Hormone 2.94 uIU/mL (0.36-3.74); Troponin I 4.5 ng/L (0.00-60.4)
== END 2024-05-14 11:12 | disposition home or self-care (01) ==
LOC: CHSLAB 11:12
PROVIDERS: PCP Nurse Practitioner Family; Visit Provider Nurse Practitioner Family
DX: R07.1 Chest pain on breathing (principal); E03.9 Hypothyroidism, unspecified; R06.02 Shortness of breath
CPT/HCPCS: 36415; 80048; 83880; 84443; 84484; 85025; 85380; 85610

== ENCOUNTER 2025-02-24 08:48 | Outpatient (CLI) | payer MEDICARE, SELFPAY ==
[2025-02-24 09:06] LABS: Hematocrit 40.2 % (35.0-42.0); Hemoglobin 13.2 g/dL (11.7-13.8); Immature Granulocyte Percent A 0.2 % (0.0-0.0); Immature Platelet Fraction Pct 7.2 % (1.0-7.0); Lymphocytes Absolute Auto 2.06 K/mm3 (1.10-4.50); Mean Corpuscular HGB Conc 32.8 g/dL (32-36); Mean Corpuscular Hemoglobin 32.4 pg (27.0-31.0); Mean Corpuscular Volume 98.5 fL (78.0-102.0); Nucleated Red Blood Cells Absolute Auto 0.00 K/mm3 (0.00-0.00); Nucleated Red Blood Cells Perc 0.0 % (0-0.0); Platelet Count Result 241 K/mm3 (150-420); Red Blood Count 4.08 M/mm3 (4.20-5.40); White Blood Count 5.0 K/mm3 (4.8-10.8)
--- OUTSIDE RECORDS SUMMARY | 2025-02-24 09:11 | XMS_ITS | Clinical Summary ---
Author Organization [facility] Address [address] [place] [address] Care Team Providers Care Transmission Calibration Engineer Name Role Phone Unknown, Notinfile Primary Care Provider Unavail able Allergies No known active allergies Medications albuterol HFA (VENTOLIN HFA) 90 mcg/actuation inhaler Ventolin HFA 90 mcg/actuation aerosol inhaler Active hydrOXYzine (ATARAX) 25 mg tablet TK 1 T PO HS PRN NV 3 9 Active levothyroxine (SYNTHROID) 50 mcg tablet TK 1 T PO D 3 9 Active SPIRIVA RESPIMAT 2.5 mcg/actuation inhaler INL 2 PFS PO D 2 9 Active traZODone (DESYREL) 100 mg tablet TK 1 T PO HS 3 9 Active acetaminophen-c odeine (TYLENOL with CODEINE #3) 300-30 mg per tablet Take 1 tablet by mouth every 4 (four) hours as needed for pain (At bedtime) 7 tablet 0 Active mupirocin (BACTROBAN) 2 % ointment Apply topically 3 (three) times a day 22 g 0 Active Active Problems No known active problems Social History Tobacco Use Types Packs/Day Years Used Date Smoking Tobacco: Every Day Cigarettes Smokeless Tobacco: Never Personal Safety Answer Date Recorded Getting School Help Needed Not on file 09/16 Comments Unknown Sex and Gender Information Value Date Recorded Sex Assigned at Not on file Legal 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 Gender Identity Not on file Sexual Orientation Not on file Obstetrics History Last Filed Vital Signs Vital Sign Reading Time Taken Comments Blood Pressure 98/52 01/24/2020 1:19 PM CDT Pulse 65 01/24/2020 1:19 PM CDT Temperature - - Respiratory Rate - - Oxygen Saturation 100% 01/24/2020 1:19 PM CDT Inhaled Oxygen Concentration - - Weight - - Height - - Body Mass Index - - Plan of Treatment Not on file Insurance [facility] [place] [address] Care Teams Transmission Calibration Engineer Relationship Specialty Start Date End Date Unknown, Notinfile PCP - General 05/20/19
[2025-02-24 09:19] LABS: Hemoglobin A1C 5.4 % (<5.7)
[2025-02-24 09:49] LABS: Alanine Aminotransferase 17 U/L (6-35); Albumin Level 4.8 g/dL (3.5-5.1); Alkaline Phosphatase 55 U/L (38-126); Anion Gap 9 mmol/L (4-12); Aspartate Amino Transferase 33 U/L (14-36); Bilirubin,Total 0.5 mg/dL (0.2-1.3); Blood Urea Nitrogen 8 mg/dL (7-17); Calcium 9.6 mg/dL (8.4-10.2); Carbon Dioxide 29 mmol/L (22-30); Chloride 96 mmol/L (98-107); Cholesterol 174 mg/dL (0-200); Estimated Glomerular Filt Rate > 60; Glucose 85 mg/dL (65-110); HDL Direct 83 mg/dL; Osmolality Calculated 275 mOsm/kg (285-295); Potassium 4.9 mmol/L (3.4-5.0); Sodium 134 mmol/L (137-145); Total Protein 7.1 g/dL (6.3-8.2); Triglycerides 235 mg/dL (<150)
[2025-02-24 09:58] LABS: NT Pro B Type Natriuretic Pept 50 pg/mL (19.9-100)
[2025-02-24 10:20] LABS: Thyroid Stimulating Hormone Reflex 1.800 uIU/mL (0.465-4.68)
== END 2025-02-24 08:49 | disposition home or self-care (01) ==
LOC: CHSLAB 08:49
PROVIDERS: PCP Nurse Practitioner Family; Visit Provider Nurse Practitioner Family
DX: E03.9 Hypothyroidism, unspecified (principal); Z13.1 Encounter for screening for diabetes mellitus; R06.01 Orthopnea; J44.9 Chronic obstructive pulmonary disease, unspecified
CPT/HCPCS: 36415; 80053; 80061; 83036; 83880; 84443; 85025; 85055

== ENCOUNTER 2025-03-18 13:45 | Outpatient (CLI) | payer MEDICARE, SELFPAY ==
--- NOTE | 2025-03-18 13:48 | ECHO_ITS ---
Patient Info Name: Kaylene Hope Age: 64 years : 1960 Gender: Female Ht: 67 in Wt: 155 lbs BSA: 1.83 m2 HR: 77 bpm BP: 132 / 81 mmHg Heart Rhythm: Sinus Rhythm Technical Quality: Fair Exam Date: 03/18/2025 1:53 PM Patient Status: O Admit Date: 03/18/2025 Exam Type: CA echo doppler color flow Complete two-dimensional, color flow and Doppler transthoracic echocardiogram is performed. Manager [employer]: Fatou Sullivan Attending Provider: Beata Archer Summary 1. Complete two-dimensional, color flow and Doppler transthoracic echocardiogram is performed. 2. Left ventricular chamber dimension is normal. 3. Left ventricular systolic function is normal, estimated at 65-70. 4. The left ventricular diastolic function is grade I diastolic dysfunction. 5. E/e' 8 is minimally elevated. 6. Right atrial chamber dimension is mildly enlarged. 7. The aortic valve is not well visualized. Cannot determine number of aortic valve leaflets. 8. There is moderate aortic valve sclerosis. 9. There is moderate aortic valve stenosis based on a peak velocity of 144 cm/s, mean gradient of 4 mmHg, and aortic valve area of 0.4 cm2. There is no turbulent flow through the valve which suggests it is not severe aortic stenosis. Consider RADHA if clinically indicated. 10. There is trace aortic valve regurgitation. 11. There is mild mitral valve regurgitation. 12. No pulmonary hypertension, estimated pulmonary arterial systolic pressure is 27 mmHg. Left Ventricle E/e' 8 is minimally elevated. Left ventricular chamber dimension is normal. Left ventricular systolic function is normal, estimated at 65-70. The left ventricular diastolic function is grade I diastolic dysfunction. Right Ventricle Right ventricular chamber dimension is normal. Right ventricular systolic function is normal and with normal TAPSE 2.3 cm. Left Atria Left atrial chamber dimension is normal. Right Atria Right atrial chamber dimension is mildly enlarged. Aortic Valve The aortic valve is not well visualized. Cannot determine number of aortic valve leaflets. There is moderate aortic valve sclerosis. There is moderate aortic valve stenosis based on a peak velocity of 144 cm/s, mean gradient of 4 mmHg, and aortic valve area of 0.4 cm2. There is no turbulent flow through the valve which suggests it is not severe aortic stenosis. Consider RADHA if clinically indicated. There is trace aortic valve regurgitation. Pulmonic Valve There is no pulmonic regurgitation. Mitral Valve There is no mitral valve stenosis. There is mild mitral valve regurgitation. Tricuspid Valve There is no tricuspid valve regurgitation. No pulmonary hypertension, estimated pulmonary arterial systolic pressure is 27 mmHg. Pericardium/Pleural There is no pericardial effusion. Inferior Vena Cava Normal inferior vena cava with >50% collapse upon inspiration consistent with normal right atrial pressure, 5 mmHg. Aorta The aortic root size at the sinus of Valsalva is normal. Left Ventricular Outflow Tract Name Value Normal LVOT 2D LVOT Diameter 2.0 cm LVOT Doppler LVOT Peak Velocity 37 cm/s LVOT Peak Gradient 1 mmHg LVOT Mean Gradient 0 mmHg LVOT VTI 5 cm LVOT VTI/AV VTI Ratio 0.1 LVOT Stroke Volume 15 ml LVOT CO 1.1 l/min LVOT CI 0.6 l/min/m2 Pulmonic Valve Name Value Normal RVOT Doppler RVOT Peak Velocity 81 cm/s RVOT Peak Gradient 3 mmHg PV Doppler PV Peak Velocity 89 cm/s PV Peak Gradient 3 mmHg Mitral Valve Name Value Normal MV Diastolic Function MV E Peak Velocity 76 cm/s MV A Peak Velocity 66 cm/s MV E/A 1.1 MV Decel Time (PW) 164 ms MV Annular TDI MV E/e' (Septal) 9.4 MV E/e' (Lateral) 8.8 MV E/e' (Average) 9.1 Tricuspid Valve Name Value Normal TV Regurgitation Doppler TR Peak Velocity 233 cm/s TR Peak Gradient 19 mmHg Estimated PAP/RSVP RA Pressure 5 mmHg <=5 PA Systolic Pressure 27 mmHg <36 RV Systolic Pressure 27 mmHg <36 TV Annular TDI TV Lateral Leonora s' Velocity 12.7 cm/s >=9.5 Aorta Name Value Normal Ascending Aorta Ao Root Diameter (MM) 3.3 cm Ao Root Diam Index (MM) 1.8 cm/m2 Aortic Valve Name Value Normal AV Doppler AV Peak Velocity 144 cm/s AV Peak Gradient 7 mmHg AV Mean Gradient 4 mmHg AV VTI 34 cm AV Area (Cont Eq VTI) 0.4 cm2 >=3.0 AV Area (Cont Eq [place]) 0.8 cm2 AV DI ([place]) 0.25 AV Regurgitation 2D LVOT Area 3.0 cm2 Ventricles Name Value Normal LV Dimensions 2D/MM IVS Diastolic Thickness (2D) 1.1 cm 0.6-1.0 LVID Diastole (2D) 4.7 cm 3.8-5.2 LVIW Diastolic Thickness (2D) 1.1 cm 0.6-0.9 LVID Systole (2D) 2.6 cm 2.2-3.5 LVOT Diameter 2.0 cm LV Mass (2D Cubed) 194.69 g 67.00-162.00 LV Mass Index (2D Cubed) 106 g/m2 43-95 Relative Wall Thickness (2D) 0.48 <=0.42 LV Fractional Shortening/Ejection Fraction 2D/MM LV Fractional Shortening (2D) 44 % 27-45 LV EF (2D Teichholz) 75 % LV Diastolic Volume (4C MOD) 68 ml LV EF (4C MOD) 74 % LV Diastolic Volume (2C MOD) 68 ml LV EF (2C MOD) 75 % LV Diastolic Volume (BP MOD) 70 ml 46-106 LV Diastolic Volume Index (BP MOD) 38 ml/m2 29-61 LV Systolic Volume (BP MOD) 17 ml 14-42 LV Systolic Volume Index (BP MOD) 9 ml/m2 8-24 LV EF (BP MOD) 75 % 54-74 LV Diastolic Length (4C) 7.3 cm LV Systolic Length (4C) 5.5 cm LV Stroke Volume (4C MOD) 50 ml Atria Name Value Normal LA Dimensions LA Dimension (MM) 3.6 cm 2.7-3.8 LA Volume (4C A-L) 39 ml LA Volume (BP A-L) 50 ml RA Dimensions RA Systolic Major [place] Length (4C) 5.6 cm 2.2-2.8 RA Area (4C) 22.7 cm2 <=18.0 Report Signatures
--- OUTSIDE RECORDS SUMMARY | 2025-03-18 15:26 | XMS_ITS | Clinical Summary ---
Author Organization [facility] Address [address] [place] [address] Care Team Providers Care Cement Finisher Helper Name Role Phone None, Provider MD Primary Care Provider Unavaila ble Allergies No known active allergies Medications levothyroxine 50 MCG tablet Take 50 mg by mouth daily. 9 Active trazodone 100 MG tablet Take 100 my by mought daily at bedtime 9 Active tiotropium (SPIRIVA RESPIMAT) 2.5 MCG/ACT inhaler (SPIRIVA RESPIMAT) INL 2 PFS PO D 9 Active albuterol sulfate HFA 108 (90 Base) MCG/ACT inhaler Ventolin HFA 90 mcg/actuation aerosol inhaler Active albuterol sulfate HFA 108 (90 Base) MCG/ACT inhaler Inhale 2 puffs into the lungs every 6 (six) hours as needed for Wheezing. Active tiotropium 2.5 MCG/ACT inhaler (SPIRIVA RESPIMAT) Inhale 2 puffs into the lungs daily. Please provide assembled. Active hydrOXYzine 25 MG tablet Take 25 mg by mouth nightly. 9 Active silver sulfADIAZINE 1 % cream Apply topically daily. 20 g 0 Active hydrocodone-aceta minophen 7.5-325 MG tabletIndications :Chronic Pain Take 1 tablet by mouth every 6 (six) hours as needed for Pain. Indications: Chronic Pain 61 tablet 0 Active Active Problems Problem Noted Date Diagnosed Date Tibia/fibula fracture, left, closed, initial enc ounter 06/29/2019 Immunizations Immunization Administration Dates Next Due Pneumococcal (Pneumovax 23) 06/30/2019 Social History Tobacco Use Types Packs/Day Years Used Date Smoking Tobacco: Every Day Cigarettes Smokeless Tobacco: Never Alcohol Use Standard Drinks/Week Comments Yes 0 (1 standard drink = 0.6 oz pur e alcohol) A couple drinks a day Comments No Sex and Gender Information Value Date Recorded Sex Assigned at Not on file Legal Sex Female 6:14 PM CDT Gender Identity Not on file Sexual Orientation Not on file Last Filed Vital Signs Vital Sign Reading Time Taken Comments Blood Pressure 115/91 07/09/2019 8:57 AM BAG PRESS OPERATOR GUILLERMINA Fisher aware of vitals Pulse 93 07/09/2019 8:57 AM BAG PRESS OPERATOR Temperature 37 C (98.6 F) 07/09/2019 8:57 AM BAG PRESS OPERATOR Respiratory Rate 18 07/09/2019 8:57 AM BAG PRESS OPERATOR Oxygen Saturation 100% 07/09/2019 8:5 7 AM BAG PRESS OPERATOR Inhaled Oxygen Concentration - - Weight 80.2 kg (176 lb 12.9 oz) 06/29/2019 1:39 PM BAG PRESS OPERATOR Height 170.2 cm (5' 7) 06/29/2019 1:39 PM BAG PRESS OPERATOR Body Mass Index 27.69 06/29/2019 1:39 PM BAG PRESS OPERATOR Plan of Treatment Health Maintenance Due Date Last Done Comments Colorectal Cancer Screening Colonoscopy (10 Years) 1959 Hepatitis C 1977 DTaP, Tdap and Td Vaccines ( 1 - Tdap) 1978 Mammogram Screening 1999 Zoster Vaccines (1 of 2) 2009 Pneumococcal Vaccine: 50+ Ye ars (2 of 2 - PCV) 06/30/2020 06/30/2019 Dexa Scan (General) 2024 COVID-19 Vaccine (1 - 2023-2 5 season) 2025 RSV Immunization or 60+ Years (1 - 1-dose 75+ series) 2034 Meningococcal B Vaccine Aged Out No l onger eligible based on patient's age to complete this topic Meningococcal Vaccine Aged Out No rahul adore eligible based on patient's age to complete this topic RSV Immunizations Under 20 Months Aged Out No longer eligible based on patient's age to complete this topic Medical Devices Implanted Type Area Deposition Reporter Device Identifier Shelf Expiration Date Model / Serial / Lot Clamp Synthes Large Multi-Pin Tong Attachment - [id number] Implanted:Qty: 3 on 06/29/2019 by Marquis Valenzuela MD at [facility] Left: Leg SYNTHES 390.003 / / Clamp Synthes Large Combination - [id number] Implanted:Qty: 1 on 06/29/2019 by Marquis Valenzuela MD at [facility] Left: Leg SYNTHES 390.005 / / Clamp Synthes Large Pin 4 Position - [id number] Implanted:Qty: 1 on 06/29/2019 by Marquis Valenzuela MD at [facility] Left: Leg SYNTHES 390.009 / / Clamp Synthes Large Pin 6 Position - [id number] Implanted:Qty: 1 on 06/29/2019 by Marquis Valenzuela MD at [facility] Left: Leg SYNTHES 390.010 / / Post Synthes 11mm 30 Deg Outrigger Mr Safe - [id number] Implanted:Qty: 1 on 06/29/2019 by Marquis Valenzuela MD at [facility] Left: Leg SYNTHES 390.012 / / Tong Synthes 11.0 Carbon Fiber 400mm - [id number] Implanted:Qty: 2 on 06/29/2019 by Marquis Valenzuela MD at [facility] Left: Leg SYNTHES 394.87 / / Screw Schanz Synthes 5 X 175mm - [id number] Implanted:Qty: 4 on 06/29/2019 by Marquis Valenzuela MD at [facility] Left: Leg SYNTHES 294.785 / / Wire Synthes 2.0 Patricia - [id number] Implanted:Qty: 4 on 07/05/2019 by Reyes Phelps MD at [facility] Left: Leg SYNTHES 292.200.10 / / 16 Hole L Prox Tibial Plate Implanted:Qty: 1 on 07/05/2019 by Reyes Phelps MD at [facility] Left: Leg [employer] 2356-10-16 / / Screw Synthes 3.5 Cortex S/Tap 28mm - [id number] Implanted:Qty: 1 on 07/05/2019 by Reyes Phelps MD at [facility] Left: Leg SYNTHES 204.828 / / Screw Synthes 3.5 Cortex S/Tap 26mm - [id number] Implanted:Qty: 2 on 07/05/2019 by Reyes Phelps MD at [facility] Left: Leg SYNTHES 204.826 / / Screw Synthes 3.5 Cortex S/Tap 34mm - [id number] Implanted:Qty: 1 on 07/05/2019 by Reyes Phelps MD at [facility] Left: Leg SYNTHES 204.834 / / Locking Screw 3.5 X 75mm Implanted:Qty: 1 on 07/05/2019 by Reyes Phelps MD at [facility] Left: Leg [employer] [id number] / / 3.5 X 70 Locking Screw Implanted:Qty: 3 on 07/05/2019 by Ananya Matias MD at [facility] Left: Leg [employer] 2359-070-35 / / 3.5 X 60 Locking Screw Implanted:Qty: 1 on 07/05/2019 by Ananya Matias MD at [facility] Left: Leg [employer] 2359-060-35 / / Explanted Type Area Deposition Reporter Device Identifier Shelf Expiration Date Model / Serial / Lot Drill Bit Synthes 3.5 Qc 195mm - [id number] Explanted:Qty: 1 on 06/29/2019 at [facility] Left: Leg SYNTHES 310.37 / / Drill Bit Synthes 2.5 Qc 110mm Gold - [id number] Explanted:Qty: 1 on 07/05/2019 by Reyes Phelps MD at [facility] Left: Leg SYNTHES 310.25 / / Drill Bit Synthes 3.5 Qc 110mm - [id number] Explanted:Qty: 1 on 07/05/2019 by Reyes Phelps MD at [facility] Left: Leg SYNTHES 310.35 / / Screw Synthes 3.5 Locking Stardrive 60mm - [id number] Explanted:Qty: 1 on 07/05/2019 by Reyes Phelps MD at [facility] Left: Leg SYNTHES 212.124 / / Description:Wrong size 3.5 X 75mm Locking Screw Explanted:Qty: 3 on 07/05/2019 by Reyes Phelps MD at [facility] Left: Leg SYNTHES 212.127 / / Description:Wrong size Plate Proximal Tibia Synthes 10 Hole - [id number] Explanted:Qty: 1 on 07/05/2019 by Reyes Phelps MD at [facility] Left: Leg SYNTHES 02.124.213 / / Description:Wrong size 2.7 Drill Bit Explanted:Qty: 1 on 07/05/2019 by Reyes Phelps MD at [facility] Left: Leg [employer] 2360-205-27 / / Screw Synthes 3.5 Cortex S/Tap 38mm - [id number] Explanted:Qty: 1 on 07/05/2019 at [facility] Left: Leg SYNTHES 204.838 / / Description:Wrong size Screw Synthes 3.5 Cortex S/Tap 30mm - [id number] Explanted:Qty: 1 on 07/05/2019 by Reyes Phelps MD at [facility] Left: Leg SYNTHES 204.830 / / Description:Wrong size Drill Bit Synthes 2.8 Qc 165mm - [id number] Explanted:Qty: 1 on 07/05/2019 by Reyes Phelps MD at [facility] Left: Leg SYNTHES 310.288 / / Insurance [facility] Advance Directives * Full Code (Latest Code Status on File) Date Activated Date Inactivated Comments 07/02/2019 11:19 AM 07/09/2019 3:15 PM Care Teams Cement Finisher Helper Relationship Specialty Start Date End Date None, MD Alicia PCP - General 06/02/19
--- OUTSIDE RECORDS SUMMARY | 2025-03-18 15:26 | XMS_ITS | Clinical Summary ---
Author Organization [facility] Address [address] [place] [address] Care Team Providers Care School Guard Name Role Phone Unknown, Notinfile Primary Care [...] on file Legal Sex Female 1:28 PM INSPECTOR SUBASSEMBLIES Gender Identity Not on file Sexual Orientation [...] Plan of Treatment Not on file Insurance [facility] [address] Care Teams School Guard Relationship Specialty Start Date End Date Unknown, Notinfile PCP - General 05/20/19
== END 2025-03-18 13:46 | disposition home or self-care (01) ==
PROVIDERS: PCP Nurse Practitioner Family; Visit Provider Nurse Practitioner Family
DX: R94.31 Abnormal electrocardiogram [ECG] [EKG] (principal); I08.0 Rheumatic disorders of both mitral and aortic valves; I35.8 Other nonrheumatic aortic valve disorders; I50.30 Unspecified diastolic (congestive) heart failure
CPT/HCPCS: 93306

== ENCOUNTER 2025-05-12 13:45 | Outpatient (CLI) | payer MEDICARE, SELFPAY ==
--- NOTE | ~2025-05-12 | US_ITS ---
EXAMINATION: US venous doppler LE , 05/12/2025 13:50 FUSION JUNCTURE GRINDER HISTORY: R60.0 - Localized edema Comparison: None Technique: Falk-scale and color Doppler images were attempted of the lower saphenofemoral junction, common femoral vein,superficial femoral vein, proximal deep femoral vein, proximal deep femoral vein, popliteal vein and posterior tibial veins. Findings: Deep Venous System:Normal flow, augmentation and compressibility. No echogenic thrombus identified. The contralateral saphenofemoral junction appears unremarkable. Superficial Venous SystemNo superficial thrombophlebitis. Soft tissues: Soft tissues are unremarkable. Impression: Negative for DVT. Reviewed, dictated and finalized at location P. ON JUNCTURE GRINDER Impression: Negative for DVT.
--- OUTSIDE RECORDS SUMMARY | 2025-05-12 13:55 | XMS_ITS | Clinical Summary ---
Author Organization [facility] Address [address] [place] [address] Care Team Providers Care Hydraulic Hammer Operator Name Role Phone Unknown, Notinfile Primary Care [...] on file Legal Sex Female 1:28 PM HYDRAULIC DESIGN ENGINEER Gender Identity Not on file Sexual Orientation [...] Plan of Treatment Not on file Insurance [facility] CHOICE PLUS [facility] HMO/PPO Address: [facility] [address] [place] [address] Care Teams Hydraulic Hammer Operator Relationship Specialty Start Date End Date Unknown, Notinfile PCP - General 05/20/19
--- OUTSIDE RECORDS SUMMARY | 2025-05-12 13:55 | XMS_ITS | Clinical Summary ---
Author Organization [facility] Address [address] [place] [address] Care Team Providers Care Power Grader Operator Name Role Phone None, Provider MD Primary [...] Comments Blood Pressure 115/91 07/09/2019 8:57 AM FISH HATCHERY SPECIALIST GUILLERMINA Fisher aware of vitals Pulse 93 07/09/2019 8:57 AM FISH HATCHERY SPECIALIST Temperature 37 C (98.6 F) 07/09/2019 8:57 AM FISH HATCHERY SPECIALIST Respiratory Rate 18 07/09/2019 8:57 AM FISH HATCHERY SPECIALIST Oxygen Saturation 100% 07/09/2019 8:5 7 AM FISH HATCHERY SPECIALIST Inhaled Oxygen Concentration - - Weight 80.2 kg (176 lb 12.9 oz) 06/29/2019 1:39 PM FISH HATCHERY SPECIALIST Height 170.2 cm (5' 7) 06/29/2019 1:39 PM FISH HATCHERY SPECIALIST Body Mass Index 27.69 06/29/2019 1:39 PM FISH HATCHERY SPECIALIST Plan of Treatment Health Maintenance Due Date Last Done Comments Colorectal Cancer Screening Colonoscopy (10 Years) 1959 Hepatitis C 1977 DTaP, Tdap and Td Vaccines ( 1 - Tdap) 1978 Mammogram Screening 1999 Zoster Vaccines (1 of 2) 2009 Pneumococcal Vaccine: 50+ Ye ars (2 of 2 - PCV) 06/30/2020 06/30/2019 Dexa Scan (General) 2024 COVID-19 Vaccine ( - 2024-2 6 season) 2025 Influenza Adult (#1) 2025 RSV Immunization or 60+ Years (1 - 1-dose 75+ series) 2034 Hepatitis A Vaccines Aged Out No long er eligible based on patient's age to complete this topic Meningococcal B Vaccine Aged Out No l onger eligible based on patient's age to complete this topic Meningococcal Vaccine Aged Out No rahul adore eligible based on patient's age to complete this topic RSV Immunizations Under 20 Months Aged Out No longer eligible based on patient's age to complete this topic Medical Devices Implanted Type Area Hand Splitter Device Identifier Shelf Expiration Date Model / Serial / Lot Clamp Synthes Large Multi-Pin Tong Attachment - [id number] Implanted:Qty: 3 on 06/29/2019 by Marquis Valenzuela MD at [facility] Left: Leg SYNTHES 390.003 / / Clamp Synthes Large Combination - [id number] Implanted:Qty: 1 on 06/29/2019 by Marquis Valenzuela MD at [facility] Left: Leg [employer] 390.005 / / Clamp Synthes Large Pin 4 Position - [id number] Implanted:Qty: 1 on 06/29/2019 by Marquis Valenzuela MD at [facility] Left: Leg [employer] 390.009 / / Clamp Synthes Large Pin 6 Position - [id number] Implanted:Qty: 1 on 06/29/2019 by Marquis Valenzuela MD at [facility] Left: Leg [employer] 390.010 / / Post Synthes 11mm 30 Deg Outrigger Mr Safe - [id number] Implanted:Qty: 1 on 06/29/2019 by Marquis Valenzuela MD at [facility] Left: Leg SYN[employer]ES 390.012 / / Tong Synthes 11.0 Carbon Fiber 400mm - [id number] Implanted:Qty: 2 on 06/29/2019 by Marquis Valenzuela MD at [facility] Left: Leg [employer]ES 394.87 / / Screw Schanz Synthes 5 X 175mm - [id number] Implanted:Qty: 4 on 06/29/2019 by Marquis Valenzuela MD at [facility] Left: Leg [employer]ES 294.785 / / Wire Synthes 2.0 Patricia - [id number] Implanted:Qty: 4 on 07/05/2019 by Reyes Phelps MD at [facility] Left: Leg [employer] 292.200.10 / / 16 Hole L Prox Tibial Plate Implanted:Qty: 1 on 07/05/2019 by Reyes Phelps MD at [facility] Left: Leg [employer] 2356-10-16 / / Screw Synthes 3.5 Cortex S/Tap 28mm - [id number] Implanted:Qty: 1 on 07/05/2019 by Reyes Phelps MD at [facility] Left: Leg [employer] 204.828 / / Screw Synthes 3.5 Cortex S/Tap 26mm - [id number] Implanted:Qty: 2 on 07/05/2019 by Reyes Phelps MD at [facility] Left: Leg [employer] 204.826 / / Screw Synthes 3.5 Cortex S/Tap 34mm - [id number] Implanted:Qty: 1 on 07/05/2019 by Reyes Phelps MD at [facility] Left: Leg [employer] 204.834 / / Locking Screw 3.5 X 75mm Implanted:Qty: 1 on 07/05/2019 by Reyes Phelps MD at [facility] Left: Leg [employer] [id number] / / 3.5 X 70 Locking Screw Implanted:Qty: 3 on 07/05/2019 by Ananya Matias MD at [facility] Left: Leg [employer] 2359-070-35 / / 3.5 X 60 Locking Screw Implanted:Qty: 1 on 07/05/2019 by Ananya Matias MD at [facility] Left: Leg [employer] 2359-060-35 / / Explanted Type Area Hand Splitter Device Identifier Shelf Expiration Date Model / Serial / Lot Drill Bit Synthes 3.5 Qc 195mm - [id number] Explanted:Qty: 1 on 06/29/2019 at [facility] Left: Leg [employer] 310.37 / / Drill Bit Synthes 2.5 Qc 110mm Gold - [id number] Explanted:Qty: 1 on 07/05/2019 by Reyes Phelps MD at [facility] Left: Leg [employer] 310.25 / / Drill Bit Synthes 3.5 Qc 110mm - [id number] Explanted:Qty: 1 on 07/05/2019 by Reyes Phelps MD at [facility] Left: Leg [employer] 310.35 / / Screw Synthes 3.5 Locking Stardrive 60mm - [id number] Explanted:Qty: 1 on 07/05/2019 by Reyes Phelps MD at [facility] Left: Leg [employer]ES 212.124 / / Description:Wrong size 3.5 X 75mm Locking Screw Explanted:Qty: 3 on 07/05/2019 by Reyes Phelps MD at [facility] Left: Leg [employer] 212.127 / / Description:Wrong size Plate Proximal Tibia Synthes 10 Hole - [id number] Explanted:Qty: 1 on 07/05/2019 by Reyes Phelps MD at [facility] Left: Leg [employer] 02.124.213 / / Description:Wrong size 2.7 Drill Bit Explanted:Qty: 1 on 07/05/2019 by Reyes Phelps MD at [facility] Left: Leg [employer] 2360-205-27 / / Screw Synthes 3.5 Cortex S/Tap 38mm - [id number] Explanted:Qty: 1 on 07/05/2019 at [facility] Left: Leg [employer] 204.838 / / Description:Wrong size Screw Synthes 3.5 Cortex S/Tap 30mm - [id number] Explanted:Qty: 1 on 07/05/2019 by Reyes Phelps MD at [facility] Left: Leg [employer] 204.830 / / Description:Wrong size Drill Bit Synthes 2.8 Qc 165mm - [id number] Explanted:Qty: 1 on 07/05/2019 by Reyes Phelps MD at [facility] Left: Leg [employer]ES 310.288 / / Insurance [facility] Advance Directives * Full Code (Latest Code Status on File) Date Activated Date Inactivated Comments 07/02/2019 11:19 AM 07/09/2019 3:15 PM Care Teams Power Grader Operator Relationship Specialty Start Date End Date None, Provider, PCP - General 06/02/19
== END 2025-05-12 13:46 | disposition home or self-care (01) ==
LOC: CHSIMG 13:46
PROVIDERS: PCP Nurse Practitioner Family; Visit Provider Internal Medicine Cardiovascular Disease
DX: R60.0 Localized edema (principal)
CPT/HCPCS: 93971